=== PATIENT | male | born 1990 | race Caucasian/White ===

== ENCOUNTER 2018-02-11 22:46 | Emergency (ER) | payer MEDICAID ==
[~2018-02-11] VITALS: Ht 170.2 cm; Wt 61.4 kg
[2018-02-11] MEDS ORDERED: CLIN-80 PO (22:58)
[2018-02-11 23:01] VITALS: BP 120/65
== END 2018-02-11 23:02 | disposition home or self-care (01) ==
LOC: ER 22:47
DX: K04.7 Periapical abscess without sinus (principal); F17.200 Nicotine dependence, unspecified, uncomplicated
CPT/HCPCS: 99283

== ENCOUNTER 2018-10-31 14:34 | Emergency (ER) | payer MEDICAID | END 2018-10-31 16:34 | disposition left against medical advice (07) | LOC: ER 14:34 | DX: L72.9 Follicular cyst of the skin and subcutaneous tissue, unspecified (principal); Z53.21 Procedure and treatment not carried out due to patient leaving prior to being seen by health care provider ==

== ENCOUNTER 2023-02-12 11:59 | Emergency (ER) | payer SELFPAY ==
[~2023-02-12] VITALS: Ht 170.2 cm; Wt 68.2 kg
[2023-02-12] MEDS ORDERED: ondansetron 4mg rapidly disintigrating tab PO ONE ×2 (12:15→19:20)
[2023-02-12] MEDS ORDERED: ONDA4TAB12 PO (20:25)
[2023-02-12 21:00] VITALS: BP 116/60
== END 2023-02-12 21:02 | disposition home or self-care (01) ==
LOC: ER 11:59
DX: A08.4 Viral intestinal infection, unspecified (principal); Z88.1 Allergy status to other antibiotic agents; Z79.899 Other long term (current) drug therapy
CPT/HCPCS: 99283

== ENCOUNTER 2023-09-02 19:01 | Emergency (ER) | payer MEDICAID ==
[~2023-09-02] VITALS: Ht 170.2 cm; Wt 68.2 kg
[~2023-09-02 19:01] MED LIST: ONDA4TAB12 PO
[2023-09-02 20:49] LABS: BASOPHILS % (AUTO) 0.2 % (0-1); EOSINOPHILS % (AUTO) 0 % (0-6); HEMATOCRIT 46.6 % (42.0-52.0); HEMOGLOBIN 15.8 g/dl (14.0-17.9); LYMPHOCYTES # (AUTO) 0.8 X10'3 (1.1-4.8); LYMPHOCYTES % (AUTO) 3.6 % (21-51); MEAN CORPUSCULAR VOLUME 88.3 FL (78-98); MEAN PLATELET VOLUME 8.5 FL (7.4-10.4); MONOCYTES # (AUTO) 0.4 X10'3 (0-0.9); NEUTROPHILS # (AUTO) 21.3 X10'3 (1.8-7.7); NEUTROPHILS % (AUTO) 94.2 % (42-75); PLATELET COUNT 294 X10'3 (140-440); RED BLOOD COUNT 5.28 X10'6 (4.70-6.10); RED CELL DISTRIBUTION WIDTH 13.5 % (11.5-14.5); WHITE BLOOD COUNT 22.6 X10'3 (4.5-11.0)
[2023-09-02 21:03] LABS: ALANINE AMINOTRANSFERASE 37 U/L (12-78); ALBUMIN 4.2 G/DL (3.4-5.0); ALBUMIN/GLOBULIN RATIO 1.1 (1.1-1.5); ALKALINE PHOSPHATASE 57 IU/L (46-116); ANION GAP 8 (8-16); ASPARTATE AMINO TRANSFERASE 18 U/L (10-37); BILIRUBIN,TOTAL 0.7 MG/DL (0.1-1.0); BLOOD UREA NITROGEN 15 MG/DL (7-18); BUN/CREATININE RATIO 19.7 (10.0-20.0); CALCIUM 9.3 MG/DL (8.5-10.1); CHLORIDE 101 MMOL/L (99-107); CREATININE 0.76 MG/DL (0.60-1.10); GLUCOSE 126 MG/DL (70-104); POTASSIUM 3.7 MMOL/L (3.5-5.1); SODIUM 137 MMOL/L (135-145); TOTAL CARBON DIOXIDE 28.2 MMOL/L (24-32); TOTAL PROTEIN 8.2 G/DL (6.4-8.2); eCRCL 129 ML/MIN; eGFR > 90 ML/MIN
[2023-09-02 21:06] LABS: LIPASE 22 U/L (16-77)
--- NOTE | 2023-09-02 21:13 | NUR ---
CHARGE NURSE NOTIFIED OF [facility]BC.
[2023-09-02] MEDS ORDERED: normal saline 1000ML IV soln IVB ONE (23:10)
[2023-09-02] MEDS ORDERED: ondansetron/PF 4mg/2ml inj IV ONE (23:10)
[2023-09-02] MEDS ORDERED: meclizine 12.5mg tablet PO ONE (23:10)
[2023-09-03] MEDS ORDERED: proCHLORperazine 10 MG/2 ml inj IV ONE (00:50)
[2023-09-03] MEDS ORDERED: MECL-226 PO (01:22)
[2023-09-03] MEDS ORDERED: ONDA8TAB13 PO (01:22)
[2023-09-03 01:34] VITALS: BP 133/84; PULSE 91; RESP 18; TEMP 98.4; O2SAT 98
== END 2023-09-03 01:41 | disposition home or self-care (01) ==
LOC: ER 19:02
DX: H81.10 Benign paroxysmal vertigo, unspecified ear (principal); R11.10 Vomiting, unspecified; Z88.1 Allergy status to other antibiotic agents; Z79.899 Other long term (current) drug therapy
CPT/HCPCS: 36415; 80053; 83690; 84145; 85025; 96374; 96375; 99284; J0780; J2405; J7030; J8597

== ENCOUNTER 2024-06-17 16:48 | Emergency (ER) | payer MEDICAID ==
[~2024-06-17] VITALS: Ht 170.2 cm; Wt 65.9 kg
[~2024-06-17 16:48] MED LIST changes: +MECL-226 PO; +ONDA-243 PO; +ONDA-245 PO; -ONDA4TAB12 PO
[2024-06-17 16:49] VITALS: BP 138/91; PULSE 99; RESP 14; TEMP 98.1; O2SAT 97
[2024-06-17] MEDS ORDERED: CARB15DR91 RIGHT EAR (17:03)
== END 2024-06-17 17:21 | disposition home or self-care (01) ==
LOC: ER 16:48
DX: S00.411A Abrasion of right ear, initial encounter (principal); H61.21 Impacted cerumen, right ear; Z88.1 Allergy status to other antibiotic agents; Z88.8 Allergy status to other drugs, medicaments and biological substances; Z79.899 Other long term (current) drug therapy; X58.XXXA Exposure to other specified factors, initial encounter; Y93.89 Activity, other specified; Y92.89 Other specified places as the place of occurrence of the external cause; Y99.8 Other external cause status
CPT/HCPCS: 99282

== ENCOUNTER 2024-07-29 10:46 | Emergency (ER) | payer MEDICAID, OTHER ==
[~2024-07-29] VITALS: Ht 170.2 cm; Wt 65.9 kg
[~2024-07-29 10:46] MED LIST changes: +CARB15DR91 RIGHT EAR
[2024-07-29 10:52] VITALS: BP 177/82; PULSE 100; RESP 16; TEMP 98.5; O2SAT 98
== END 2024-07-29 13:11 | disposition left against medical advice (07) ==
LOC: ER 10:46
DX: H92.02 Otalgia, left ear (principal); Z88.1 Allergy status to other antibiotic agents; Z88.8 Allergy status to other drugs, medicaments and biological substances; Z53.21 Procedure and treatment not carried out due to patient leaving prior to being seen by health care provider